=== PATIENT | male | born 1980 | race American Indian/Alaskan Native ===

== ENCOUNTER 2017-05-08 19:52 | Emergency (ER) | payer OTHER, BC ==
[2017-05-08 21:01] VITALS: BP 127/80
== END 2017-05-08 23:19 | disposition left against medical advice (07) ==
LOC: ED 19:52
DX: M54.5 Low back pain (principal); M25.519 Pain in unspecified shoulder; V89.2XXA Person injured in unspecified motor-vehicle accident, traffic, initial encounter; Y93.89 Activity, other specified; Y99.9 Unspecified external cause status; Y92.410 Unspecified street and highway as the place of occurrence of the external cause; Z53.21 Procedure and treatment not carried out due to patient leaving prior to being seen by health care provider